=== PATIENT | female | born 1955 | race Caucasian/White ===

== ENCOUNTER 2020-06-11 09:08 | Day surgery (SDC) | payer OTHER ==
[2020-06-10 11:42] LABS: ALBUMIN 3.5 g/dL (3.4-5.0); ANION GAP 3 mmol/L (5-15); CHLORIDE 103 mmol/L (98-107)
[2020-06-10 11:48] LABS: ALANINE AMINOTRANSFERASE 26 U/L (12-78); ALKALINE PHOSPHATASE 121 U/L (45-117); BILIRUBIN,TOTAL 1.2 mg/dL (0.2-1.0); CREATININE 0.93 mg/dL (0.55-1.02); TOTAL PROTEIN 7.3 g/dL (6.4-8.2)
[~2020-06-11] VITALS: Ht 152.4 cm; Wt 88.5 kg
[~2020-06-11 09:08] MED LIST: ATOR-2 PO; CARV3.122 PO; DIAZ5TAB4 PO; HYDR12.517 PO; LEVO88TA4 PO; LIDOCAINE/PF 1%-EPI 1:200K, 30 ML ONE; LISI40TA PO; PANT40TA3 PO; ROPIvacaine/PF 0.5%, 30 ML ONE; SPIR25TA5 PO
[2020-06-11] MEDS ORDERED: CHLORHEXIDINE 15 ML UDC ONE (09:20)
[2020-06-11] MEDS ORDERED: LEVO100T5 PO (09:33)
[2020-06-11 09:34] VITALS: BP 111/75
[2020-06-11] MEDS ORDERED: FENTANYL PF 100 MCG/2ML ONE ×2 (09:43→11:24)
[2020-06-11] MEDS ORDERED: MIDAZOLAM 1 MG/ML, 2ML ONE (09:44)
[2020-06-11] MEDS ORDERED: CHLORHEXIDINE 15 ML UDC MM ONE (10:00)
[2020-06-11] MEDS ORDERED: LACTATED RINGERS 1,000 ML IV SCH (10:00)
[2020-06-11] MEDS ORDERED: EPHEDRINE 50 MG/ML, 1ML ONE (10:25)
[2020-06-11] MEDS ORDERED: PROPOFOL 10 MG/ML, 20ML ONE (10:52)
[2020-06-11] MEDS ORDERED: CEFAZOLIN 1,000 MG ONE (10:52)
[2020-06-11] MEDS ORDERED: ONDANSETRON 2MG/ML, 2ML ONE (10:52)
[2020-06-11] MEDS ORDERED: DEXAMETHASONE 4 MG/ML, 1ML ONE (10:52)
[2020-06-11] MEDS ORDERED: KETOROLAC 30 MG/1 ML ONE (10:53)
[2020-06-11] MEDS ORDERED: LIDOCAINE-MPF 2% ,5ML ONE (10:53)
[2020-06-11] MEDS ORDERED: OXYcodone 5 MG/5 ML ORAL.SOL UDC PO PRN (11:00)
[2020-06-11] MEDS ORDERED: ACETAMINOPHEN 325 MG TABLET PO PRN (11:00)
[2020-06-11] MEDS ORDERED: HYDROmorphone 1 MG/ML, 1ML INJ IVPush PRN (11:00)
[2020-06-11] MEDS ORDERED: LORazepam 2 MG/ML, 1ML IVPush PRN (11:00)
[2020-06-11] MEDS ORDERED: PROMETHAZINE 25 MG/ML, 1ML IVPush PRN (11:00)
[2020-06-11] MEDS ORDERED: MEPERIDINE/PF 25MG/0.5ML IVPush PRN (11:00)
[2020-06-11] MEDS ORDERED: ACETAMINOPHEN 650 MG/20.3 ML UDC ONE (11:24)
[2020-06-11] MEDS ORDERED: OXYcodone 5 MG/5 ML ORAL.SOL UDC ONE (11:24)
[2020-06-11] MEDS: FENTANYL PF 100 MCG/2ML IV PRN ×2 (11:25→11:30)
== END 2020-06-11 13:00 | disposition home or self-care (01) ==
LOC: OUT 09:08
PROVIDERS: ATTEND Orthopaedic Surgery
DX: S83.231A Complex tear of medial meniscus, current injury, right knee, initial encounter (principal); S83.281A Other tear of lateral meniscus, current injury, right knee, initial encounter; Z20.828 Contact with and (suspected) exposure to other viral communicable diseases; M22.41 Chondromalacia patellae, right knee; M65.861 Other synovitis and tenosynovitis, right lower leg; I10 Essential (primary) hypertension; E78.5 Hyperlipidemia, unspecified; K21.9 Gastro-esophageal reflux disease without esophagitis; E03.9 Hypothyroidism, unspecified; I25.10 Atherosclerotic heart disease of native coronary artery without angina pectoris; E66.9 Obesity, unspecified; Z68.32 Body mass index [BMI] 32.0-32.9, adult; Z79.890 Hormone replacement therapy; Z79.899 Other long term (current) drug therapy; X50.1XXA Overexertion from prolonged static or awkward postures, initial encounter; Y93.89 Activity, other specified; Y92.89 Other specified places as the place of occurrence of the external cause; Y99.8 Other external cause status
CPT/HCPCS: 29880; 36415; 80053; 87635; 93005; J0690; J1100; J1885; J2250; J2405; J2704; J2795; J3010; J7120

== ENCOUNTER 2020-06-24 15:01 | Emergency (ER) | payer OTHER ==
[~2020-06-24] VITALS: Ht 152.4 cm; Wt 87.6 kg
[~2020-06-24 15:01] MED LIST changes: +LEVO100T5 PO; -LIDOCAINE/PF 1%-EPI 1:200K, 30 ML ONE; -ROPIvacaine/PF 0.5%, 30 ML ONE
--- NOTE | 2020-06-24 15:45 | NUR ---
pt resting in bed. vss. pt was provided with a warm blanket.
--- NOTE | 2020-06-24 16:05 | NUR ---
Report from [facility] With assessment patient with no complaints (no chest pain or acute leg pain at this time)
--- NOTE | 2020-06-24 16:08 | NUR ---
us at bedside.
[2020-06-24 17:04] VITALS: BP 156/79
== END 2020-06-24 17:15 | disposition home or self-care (01) ==
LOC: ED 16:43
DX: S86.912A Strain of unspecified muscle(s) and tendon(s) at lower leg level, left leg, initial encounter (principal); M79.661 Pain in right lower leg; E78.00 Pure hypercholesterolemia, unspecified; M79.89 Other specified soft tissue disorders; Z86.73 Personal history of transient ischemic attack (TIA), and cerebral infarction without residual deficits; X58.XXXA Exposure to other specified factors, initial encounter; Y93.89 Activity, other specified; Y92.89 Other specified places as the place of occurrence of the external cause; Y99.8 Other external cause status
CPT/HCPCS: 93005; 99284